=== PATIENT | male | born 1955 | race Caucasian/White ===

== ENCOUNTER 2019-04-14 14:08 | Emergency (ER) | payer SELFPAY ==
[~2019-04-14] VITALS: Ht 188 cm; Wt 75.8 kg
[~2019-04-14 14:08] MED LIST: CETI5 PO; CLOB.05TO; CLON2 PO; HYDPAM50 PO; OMEPRAZOLE MAGN20 MG PO
[2019-04-14 14:40] LABS: BASOPHILS ABSOLUTE AUTO 0.02 K/mm3 (0.00-0.23); BASOPHILS PERCENT AUTO 0 % (0-2); EOSINOPHILS ABSOLUTE AUTO 0.08 K/mm3 (0.00-0.68); EOSINOPHILS PERCENT AUTO 1 % (0-6); Hematocrit 43.4 % (37.0-53.0); Hemoglobin 14.6 g/dL (13.5-17.5); IMMATURE GRAN ABSOLUTE AUTO 0.02 K/mm3 (0.00-0.10); IMMATURE GRAN PERCENT AUTO 0 % (0-1); LYMPHOCYTES PERCENT AUTO 15 % (21-46); MONOCYTES ABSOLUTE AUTO 0.44 K/mm3 (0.16-1.47); MONOCYTES PERCENT AUTO 5 % (4-13); Mean Corpuscular HGB 31.9 pg (26.0-34.0); Mean Corpuscular HGB Conc 33.6 g/dL (31.5-36.5); Mean Corpuscular Volume 95 fL (80-100); Mean Platelet Volume 9.7 fL (9.1-12.4); NEUTROPHILS ABSOLUTE AUTO 7.69 K/mm3 (1.96-9.15); NEUTROPHILS PERCENT AUTO 80 % (41-73); Platelet Count 246 K/mm3 (150-400); RDW Coefficient Variation 12.6 % (11.7-14.2); RDW Standard Deviation 44.1 fL (35.1-46.3); Red Blood Cell Count 4.58 M/mm3 (4.30-5.90); White Blood Cell Count 9.65 K/mm3 (4.00-11.30)
[2019-04-14 15:05] LABS: Alanine Aminotransfer (ALT/SGP 43 U/L (12-78); Albumin, Blood 3.9 g/dL (3.4-5.0); Albumin/Globulin Ratio 1.1 (0.8-1.8); Alk Phos 80 U/L (50-136); Anion Gap 7 mmol/L (6-16); Aspartate Aminotrans (AST/SGOT 52 U/L (12-37); Bilirubin, Total 0.6 mg/dL (0.1-1.0); Blood Urea Nitrogen 34 mg/dL (8-24); Bun/Creatinine Ratio 35.2 (12.0-20.0); CO2, Blood 26 mmol/L (21-32); Calcium, Blood 8.7 mg/dL (8.5-10.1); Chloride, Blood 106 mmol/L (98-108); Creatinine, Blood 0.97 mg/dL (0.60-1.20); Globulin, Blood 3.4 g/dL (2.2-4.0); Glomerular Filtration Rate >60 (60-); Glucose, Blood 111 mg/dL (70-99); Potassium, Blood 3.9 mmol/L (3.5-5.5); Sodium, Blood 139 mmol/L (136-145); Total Protein, Blood 7.3 g/dL (6.4-8.2); Troponin I <0.015 ng/mL (0.000-0.040)
== END 2019-04-14 15:55 | disposition home or self-care (01) ==
LOC: ER 14:08
PROVIDERS: Emergency Medicine
DX: I20.8 Other forms of angina pectoris (principal); F17.210 Nicotine dependence, cigarettes, uncomplicated; Z91.041 Radiographic dye allergy status; Z88.1 Allergy status to other antibiotic agents; Z88.8 Allergy status to other drugs, medicaments and biological substances; Z79.899 Other long term (current) drug therapy
CPT/HCPCS: 71046; 80053; 84484; 85025; 93005; 93010; 99285-25

== ENCOUNTER 2019-04-25 10:58 | Emergency (ER) | payer MEDICAID ==
[~2019-04-25] VITALS: Ht 190.5 cm; Wt 77.1 kg
[2019-04-25 11:34] LABS: BASOPHILS ABSOLUTE AUTO 0.02 K/mm3 (0.00-0.23); BASOPHILS PERCENT AUTO 0 % (0-2); EOSINOPHILS ABSOLUTE AUTO 0.26 K/mm3 (0.00-0.68); EOSINOPHILS PERCENT AUTO 4 % (0-6); Hematocrit 45.2 % (37.0-53.0); Hemoglobin 14.9 g/dL (13.5-17.5); IMMATURE GRAN ABSOLUTE AUTO 0.02 K/mm3 (0.00-0.10); IMMATURE GRAN PERCENT AUTO 0 % (0-1); LYMPHOCYTES ABSOLUTE AUTO 1.55 K/mm3 (0.84-5.20); LYMPHOCYTES PERCENT AUTO 24 % (21-46); MONOCYTES ABSOLUTE AUTO 0.38 K/mm3 (0.16-1.47); MONOCYTES PERCENT AUTO 6 % (4-13); Mean Corpuscular HGB 31.3 pg (26.0-34.0); Mean Corpuscular Volume 95 fL (80-100); Mean Platelet Volume 9.7 fL (9.1-12.4); NEUTROPHILS ABSOLUTE AUTO 4.27 K/mm3 (1.96-9.15); NEUTROPHILS PERCENT AUTO 66 % (41-73); Platelet Count 259 K/mm3 (150-400); RDW Coefficient Variation 12.4 % (11.7-14.2); RDW Standard Deviation 43.8 fL (35.1-46.3); Red Blood Cell Count 4.76 M/mm3 (4.30-5.90)
[2019-04-25 11:53] LABS: Alanine Aminotransfer (ALT/SGP 36 U/L (12-78); Albumin, Blood 3.8 g/dL (3.4-5.0); Alk Phos 73 U/L (50-136); Anion Gap 5 mmol/L (6-16); Aspartate Aminotrans (AST/SGOT 22 U/L (12-37); Bilirubin, Total 0.3 mg/dL (0.1-1.0); Blood Urea Nitrogen 27 mg/dL (8-24); Bun/Creatinine Ratio 29.2 (12.0-20.0); CO2, Blood 29 mmol/L (21-32); Calcium, Blood 8.9 mg/dL (8.5-10.1); Chloride, Blood 107 mmol/L (98-108); Creatinine, Blood 0.93 mg/dL (0.60-1.20); Globulin, Blood 3.8 g/dL (2.2-4.0); Glomerular Filtration Rate >60 (60-); Glucose, Blood 102 mg/dL (70-99); Sodium, Blood 141 mmol/L (136-145); Total Protein, Blood 7.6 g/dL (6.4-8.2); Troponin I <0.015 ng/mL (0.000-0.040)
== END 2019-04-25 13:07 | disposition home or self-care (01) ==
LOC: ER 10:58
PROVIDERS: Emergency Medicine
DX: R07.89 Other chest pain (principal); R51 Headache; M54.2 Cervicalgia; Z91.041 Radiographic dye allergy status; Z88.8 Allergy status to other drugs, medicaments and biological substances; Z88.1 Allergy status to other antibiotic agents; Z79.899 Other long term (current) drug therapy; J44.9 Chronic obstructive pulmonary disease, unspecified; F17.200 Nicotine dependence, unspecified, uncomplicated
CPT/HCPCS: 71046; 80053; 84484; 85025; 93005; 93010; 99284-25

== ENCOUNTER → 2019-12-14 | Outpatient (CLI) | payer OTHER | LOC: PLD 07:31 → LAB SHORT 07:31 | DX: L30.9 Dermatitis, unspecified (principal) | CPT/HCPCS: 88312 ==

== ENCOUNTER 2021-01-02 20:01 | Observation (INO) | payer OTHER ==
[~2021-01-02] VITALS: Ht 188 cm; Wt 78.0 kg
[2021-01-02] MEDS ORDERED: NITR.4SL SL (20:19)
[2021-01-02] MEDS ORDERED: ALBU90OI INH (20:19)
[2021-01-02 20:25] LABS: BASOPHILS ABSOLUTE AUTO 0.03 K/mm3 (0.00-0.23); BASOPHILS PERCENT AUTO 0 % (0-2); EOSINOPHILS ABSOLUTE AUTO 0.09 K/mm3 (0.00-0.68); EOSINOPHILS PERCENT AUTO 1 % (0-6); Hematocrit 44.3 % (37.0-53.0); Hemoglobin 15.2 g/dL (13.5-17.5); IMMATURE GRAN ABSOLUTE AUTO 0.04 K/mm3 (0.00-0.10); IMMATURE GRAN PERCENT AUTO 1 % (0-1); LYMPHOCYTES ABSOLUTE AUTO 1.72 K/mm3 (0.84-5.20); LYMPHOCYTES PERCENT AUTO 20 % (21-46); MONOCYTES ABSOLUTE AUTO 0.54 K/mm3 (0.16-1.47); MONOCYTES PERCENT AUTO 6 % (4-13); Mean Corpuscular HGB 30.7 pg (26.0-34.0); Mean Corpuscular HGB Conc 34.3 g/dL (31.5-36.5); Mean Corpuscular Volume 90 fL (80-100); Mean Platelet Volume 9.6 fL (9.1-12.4); NEUTROPHILS ABSOLUTE AUTO 6.23 K/mm3 (1.96-9.15); NEUTROPHILS PERCENT AUTO 72 % (41-73); Platelet Count 237 K/mm3 (150-400); RDW Coefficient Variation 12.4 % (11.7-14.2); RDW Standard Deviation 40.9 fL (35.1-46.3); Red Blood Cell Count 4.95 M/mm3 (4.30-5.90); White Blood Cell Count 8.65 K/mm3 (4.00-11.30)
[2021-01-02 20:39] LABS: Alanine Aminotransfer (ALT/SGP 29 U/L (12-78); Albumin, Blood 3.8 g/dL (3.4-5.0); Albumin/Globulin Ratio 1.1 (0.8-1.8); Alk Phos 77 U/L (50-136); Anion Gap 7 mmol/L (6-16); Aspartate Aminotrans (AST/SGOT 21 U/L (12-37); Bilirubin, Total 0.6 mg/dL (0.1-1.0); Blood Urea Nitrogen 26 mg/dL (8-24); Bun/Creatinine Ratio 31.4 (12.0-20.0); CO2, Blood 27 mmol/L (21-32); Calcium, Blood 8.9 mg/dL (8.5-10.1); Chloride, Blood 106 mmol/L (98-108); Creatinine, Blood 0.83 mg/dL (0.60-1.20); Globulin, Blood 3.5 g/dL (2.2-4.0); Glomerular Filtration Rate >60 (60-); Glucose, Blood 135 mg/dL (70-99); Potassium, Blood 3.8 mmol/L (3.5-5.5); Sodium, Blood 140 mmol/L (136-145); Total Protein, Blood 7.3 g/dL (6.4-8.2); Troponin I <0.015 ng/mL (0.000-0.040)
[2021-01-02 21:08] LABS: Magnesium, Blood 2.2 mg/dL (1.6-2.4)
[2021-01-03 04:51] LABS: BASOPHILS ABSOLUTE AUTO 0.04 K/mm3 (0.00-0.23); BASOPHILS PERCENT AUTO 1 % (0-2); EOSINOPHILS ABSOLUTE AUTO 0.19 K/mm3 (0.00-0.68); EOSINOPHILS PERCENT AUTO 2 % (0-6); Hematocrit 40.8 % (37.0-53.0); Hemoglobin 14.2 g/dL (13.5-17.5); IMMATURE GRAN ABSOLUTE AUTO 0.03 K/mm3 (0.00-0.10); IMMATURE GRAN PERCENT AUTO 0 % (0-1); LYMPHOCYTES ABSOLUTE AUTO 2.19 K/mm3 (0.84-5.20); LYMPHOCYTES PERCENT AUTO 28 % (21-46); MONOCYTES ABSOLUTE AUTO 0.55 K/mm3 (0.16-1.47); MONOCYTES PERCENT AUTO 7 % (4-13); Mean Corpuscular HGB 31.1 pg (26.0-34.0); Mean Corpuscular HGB Conc 34.8 g/dL (31.5-36.5); Mean Corpuscular Volume 90 fL (80-100); Mean Platelet Volume 9.9 fL (9.1-12.4); NEUTROPHILS ABSOLUTE AUTO 4.78 K/mm3 (1.96-9.15); NEUTROPHILS PERCENT AUTO 62 % (41-73); Platelet Count 219 K/mm3 (150-400); RDW Coefficient Variation 12.5 % (11.7-14.2); RDW Standard Deviation 41.3 fL (35.1-46.3); Red Blood Cell Count 4.56 M/mm3 (4.30-5.90); White Blood Cell Count 7.78 K/mm3 (4.00-11.30)
--- NOTE | 2021-01-03 05:02 | NUR ---
SHIFT SUMMARY- PT. NEW ADMIT FROM ED. A&OX4, INDEP IN ROOM. NO COMPLAINTS OF CP DURING THE NIGHT. PT. RESTED QUIETLY IN BED T/O THE NIGHT, NO APPARENT DISTRESS NOTED. TROPS NEG THUS FAR. PT. STATED HAD SOME INDIGESTION, REQUESTED MILK. TOLERATED WELL. DENIED ANY OTHER NEEDS DURING THE NIGHT, VSS. CALL LIGHT WITHIN REACH AND SIDE RAILS UPX2. WILL CONT TO MONITOR.
[2021-01-03 05:15] LABS: CPK Creatine Kinase 244 U/L (39-308); Troponin I <0.015 ng/mL (0.000-0.040)
[2021-01-03 05:31] LABS: Alanine Aminotransfer (ALT/SGP 29 U/L (12-78); Albumin, Blood 3.3 g/dL (3.4-5.0); Alk Phos 68 U/L (50-136); Anion Gap 6 mmol/L (6-16); Aspartate Aminotrans (AST/SGOT 18 U/L (12-37); Bilirubin, Total 0.7 mg/dL (0.1-1.0); Blood Urea Nitrogen 28 mg/dL (8-24); Bun/Creatinine Ratio 30.1 (12.0-20.0); CO2, Blood 26 mmol/L (21-32); Calcium, Blood 8.5 mg/dL (8.5-10.1); Chloride, Blood 107 mmol/L (98-108); Creatinine, Blood 0.93 mg/dL (0.60-1.20); Globulin, Blood 3.3 g/dL (2.2-4.0); Glomerular Filtration Rate >60 (60-); Glucose, Blood 84 mg/dL (70-99); Potassium, Blood 3.8 mmol/L (3.5-5.5); Sodium, Blood 139 mmol/L (136-145); Total Protein, Blood 6.6 g/dL (6.4-8.2)
[2021-01-03 13:20] LABS: Cholesterol 165 mg/dL (50-200); HDL Cholesterol 41 mg/dL (>39); LDL/HDL RATIO 2.5; Low Density Lipoprotein Chol 101 mg/dL (0-110); Triglycerides 117 mg/dL (30-160); Very Low Density Lipoprot Chol 23 mg/dL (6-32)
--- NOTE | 2021-01-03 15:50 | NUR ---
Echocardiogram completed.
--- NOTE | 2021-01-03 18:06 | NUR ---
SHIFT SUMMARY PT HAD STRESS TEST COMPLETED TODAY. ECHO ALSO COMPLETED IN ROOM. PT HAS NOT C/O CHEST PAIN TODAY SINCE TAKING A GI COCKTAIL THIS AM. NO OTHER ACUTE CHANGES IN ASSESSMENT AT THIS TIME. VS REVIEWED. CALL LIGHT IN REACH. PT UP IN CHAIR. EATING DINNER.
--- NOTE | 2021-01-04 05:17 | NUR ---
SHIFT SUMMARY A/OX4, IND IN ROOM. DENIES CHEST PAIN/PRESSURE AT THIS TIME. TELE RUNNING SR IN THE 60'S. VSS, NO ACUTE CHANGES AT THIS TIME. BED IN LOWEST POSITION WITH CALL LIGHT IN REACH. WILL CONTINUE TO MONITOR AND REPORT TO ONCOMING RN.
[2021-01-04] MEDS ORDERED: MIRT30 PO (12:43)
[2021-01-04] MEDS ORDERED: Nicoderm Cq1 EAC1 TOP (12:44)
== END 2021-01-04 14:11 | disposition home or self-care (01) ==
LOC: ER 20:01 → MEDS 22:10
PROVIDERS: Internal Medicine; Student in an Organized Health Care Education/Training Program; ADMIT Internal Medicine
DX: R07.2 Precordial pain (principal); I25.10 Atherosclerotic heart disease of native coronary artery without angina pectoris; J44.9 Chronic obstructive pulmonary disease, unspecified; F17.210 Nicotine dependence, cigarettes, uncomplicated; I11.0 Hypertensive heart disease with heart failure; I50.9 Heart failure, unspecified; F41.9 Anxiety disorder, unspecified; I25.2 Old myocardial infarction
CPT/HCPCS: 36415; 71045; 78452; 80053; 80061; 82550; 83735; 84443; 84484; 85025; 93005; 93010; 93017; 93306; 94760; 99285-25; A9270; A9500; G0378; J0706; J1650; J2785; J7030

== ENCOUNTER 2023-01-25 12:50 | Emergency (ER) | payer OTHER ==
[~2023-01-25] VITALS: Ht 193 cm; Wt 81.7 kg
[~2023-01-25 12:50] MED LIST changes: +ALBU2.5V5 INH; +ALBU90OI INH; +EPIPEN0.3 MG/0.1 INJ; +HYDHCL25 PO; +LEVO750 PO; +MIRT30 PO; +NITR.4SL SL; +Nicoderm Cq1 EAC1 TOP; +Pepcid40 MG PO; +Prednisone20 MG PO
[2023-01-25 12:55] VITALS: BP 180/93
[2023-01-25] MEDS ORDERED: Voltaren100 GM TOP (13:37)
== END 2023-01-25 14:02 | disposition home or self-care (01) ==
LOC: ER 12:50
DX: S43.402A Unspecified sprain of left shoulder joint, initial encounter (principal); W18.30XA Fall on same level, unspecified, initial encounter; Z88.1 Allergy status to other antibiotic agents; Z88.6 Allergy status to analgesic agent; Z91.041 Radiographic dye allergy status; Z88.8 Allergy status to other drugs, medicaments and biological substances; Z79.51 Long term (current) use of inhaled steroids; Z79.899 Other long term (current) drug therapy; J44.9 Chronic obstructive pulmonary disease, unspecified; G43.909 Migraine, unspecified, not intractable, without status migrainosus; F17.200 Nicotine dependence, unspecified, uncomplicated
CPT/HCPCS: 99283

== ENCOUNTER 2023-02-10 07:14 | Emergency (ER) | payer OTHER ==
[~2023-02-10] VITALS: Ht 190.5 cm; Wt 81.7 kg
[~2023-02-10 07:14] MED LIST changes: +Voltaren100 GM TOP
[2023-02-10 07:45] LABS: BASOPHILS ABSOLUTE AUTO 0.04 K/mm3 (0.00-0.23); BASOPHILS PERCENT AUTO 0 % (0-2); EOSINOPHILS ABSOLUTE AUTO 0.22 K/mm3 (0.00-0.68); EOSINOPHILS PERCENT AUTO 2 % (0-6); Hematocrit 46.5 % (37.0-53.0); Hemoglobin 15.8 g/dL (13.5-17.5); IMMATURE GRAN ABSOLUTE AUTO 0.04 K/mm3 (0.00-0.10); IMMATURE GRAN PERCENT AUTO 0 % (0-1); LYMPHOCYTES ABSOLUTE AUTO 2.37 K/mm3 (0.84-5.20); LYMPHOCYTES PERCENT AUTO 26 % (21-46); MONOCYTES ABSOLUTE AUTO 0.47 K/mm3 (0.16-1.47); MONOCYTES PERCENT AUTO 5 % (4-13); Mean Corpuscular HGB 30.6 pg (26.0-34.0); Mean Corpuscular Volume 90 fL (80-100); Mean Platelet Volume 9.4 fL (9.1-12.4); NEUTROPHILS ABSOLUTE AUTO 5.86 K/mm3 (1.96-9.15); NEUTROPHILS PERCENT AUTO 65 % (41-73); Platelet Count 269 K/mm3 (150-400); RDW Coefficient Variation 12.5 % (11.7-14.2); RDW Standard Deviation 41.3 fL (35.1-46.3); Red Blood Cell Count 5.16 M/mm3 (4.30-5.90)
[2023-02-10 08:10] LABS: Free Thyroxine 0.85 ng/dL (0.70-1.60)
[2023-02-10 08:13] LABS: Albumin, Blood 3.8 g/dL (3.4-5.0); Bilirubin, Total 0.5 mg/dL (0.1-1.0); Bun/Creatinine Ratio 29.1 (12.0-20.0); Globulin, Blood 3.7 g/dL (2.2-4.0); Potassium, Blood 4.1 mmol/L (3.5-5.5); Thyroid Stimulating Hormone 2.2 uIU/mL (0.360-4.800); Total Protein, Blood 7.5 g/dL (6.4-8.2)
[2023-02-10 08:30] VITALS: BP 142/78
[2023-02-10] MEDS ORDERED: AMOCLA875 PO (09:09)
== END 2023-02-10 09:16 | disposition home or self-care (01) ==
LOC: ER 07:14
PROVIDERS: Emergency Medicine
DX: K11.20 Sialoadenitis, unspecified (principal); J44.9 Chronic obstructive pulmonary disease, unspecified; I25.10 Atherosclerotic heart disease of native coronary artery without angina pectoris; I25.2 Old myocardial infarction; F17.200 Nicotine dependence, unspecified, uncomplicated; Z88.1 Allergy status to other antibiotic agents; Z91.041 Radiographic dye allergy status; Z88.6 Allergy status to analgesic agent; Z88.8 Allergy status to other drugs, medicaments and biological substances; Z79.899 Other long term (current) drug therapy
CPT/HCPCS: 70491; 80053; 84439; 84443; 85025; 96374-59; 96375; 99284-25; J1100; J1200; Q9967

== ENCOUNTER 2023-03-24 08:15 | Emergency (ER) | payer OTHER ==
[~2023-03-24] VITALS: Ht 190.5 cm; Wt 81.7 kg
[~2023-03-24 08:15] MED LIST changes: +AMOCLA875 PO
[2023-03-24 08:43] VITALS: BP 142/78
[2023-03-24] MEDS ORDERED: Percocet 5-3251 EACH PO (09:48)
== END 2023-03-24 10:03 | disposition home or self-care (01) ==
LOC: ER 08:15
DX: S43.51XA Sprain of right acromioclavicular joint, initial encounter (principal); J44.9 Chronic obstructive pulmonary disease, unspecified; I25.10 Atherosclerotic heart disease of native coronary artery without angina pectoris; I25.2 Old myocardial infarction; F17.200 Nicotine dependence, unspecified, uncomplicated; Z91.041 Radiographic dye allergy status; Z88.6 Allergy status to analgesic agent; Z88.1 Allergy status to other antibiotic agents; Z88.8 Allergy status to other drugs, medicaments and biological substances; Z79.899 Other long term (current) drug therapy; X50.1XXA Overexertion from prolonged static or awkward postures, initial encounter
CPT/HCPCS: 73030; 99283-25

== ENCOUNTER 2023-07-28 23:18 | Emergency (ER) | payer OTHER ==
[~2023-07-28] VITALS: Ht 182.9 cm; Wt 72.6 kg
[~2023-07-28 23:18] MED LIST changes: +Percocet 5-3251 EACH PO
[2023-07-29] MEDS ORDERED: Benadryl Itch28.3 G1 TOP (03:08)
[2023-07-29 03:25] VITALS: BP 139/95
== END 2023-07-29 03:24 | disposition home or self-care (01) ==
LOC: ER 23:18
DX: L29.9 Pruritus, unspecified (principal); Z88.8 Allergy status to other drugs, medicaments and biological substances; Z88.6 Allergy status to analgesic agent; Z88.1 Allergy status to other antibiotic agents; Z91.041 Radiographic dye allergy status; Z79.899 Other long term (current) drug therapy; J44.9 Chronic obstructive pulmonary disease, unspecified; G43.909 Migraine, unspecified, not intractable, without status migrainosus; F43.10 Post-traumatic stress disorder, unspecified; I25.10 Atherosclerotic heart disease of native coronary artery without angina pectoris; F17.200 Nicotine dependence, unspecified, uncomplicated
CPT/HCPCS: A9270

== ENCOUNTER → 2024-03-16 | Outpatient (CLI) | payer OTHER ==
[~2024-03-16] MED LIST changes: +Benadryl Itch28.3 G1 TOP; +Robaxin750 MG PO
[2024-03-16 17:50] LABS: BASOPHILS ABSOLUTE AUTO 0.03 K/mm3 (0.00-0.23); BASOPHILS PERCENT AUTO 0 % (0-2); EOSINOPHILS PERCENT AUTO 4 % (0-6); Hemoglobin 16.1 g/dL (13.5-17.5); IMMATURE GRAN ABSOLUTE AUTO 0.04 K/mm3 (0.00-0.10); IMMATURE GRAN PERCENT AUTO 1 % (0-1); LYMPHOCYTES ABSOLUTE AUTO 2.12 K/mm3 (0.84-5.20); LYMPHOCYTES PERCENT AUTO 29 % (21-46); MONOCYTES ABSOLUTE AUTO 0.46 K/mm3 (0.16-1.47); MONOCYTES PERCENT AUTO 6 % (4-13); Mean Corpuscular HGB Conc 34.3 g/dL (31.5-36.5); Mean Corpuscular Volume 90 fL (80-100); Mean Platelet Volume 10.3 fL (9.1-12.4); NEUTROPHILS ABSOLUTE AUTO 4.46 K/mm3 (1.96-9.15); NEUTROPHILS PERCENT AUTO 60 % (41-73); Platelet Count 263 K/mm3 (150-400); RDW Coefficient Variation 12.3 % (11.7-14.2); RDW Standard Deviation 40.7 fL (35.1-46.3); White Blood Cell Count 7.41 K/mm3 (4.00-11.30)
[2024-03-16 18:07] LABS: Alanine Aminotransfer (ALT/SGP 28 U/L (12-78); Albumin, Blood 3.8 g/dL (3.4-5.0); Albumin/Globulin Ratio 1.1 (0.8-1.8); Alk Phos 81 U/L (50-136); Anion Gap 7 mmol/L (3-11); Aspartate Aminotrans (AST/SGOT 17 U/L (12-37); Bilirubin, Total 0.4 mg/dL (0.1-1.0); Blood Urea Nitrogen 34 mg/dL (8-24); Bun/Creatinine Ratio 35.3 (12.0-20.0); CHOL/HDL RATIO 4.3; CO2, Blood 29 mmol/L (21-32); Calcium, Blood 8.9 mg/dL (8.5-10.1); Chloride, Blood 107 mmol/L (98-108); Cholesterol 175 mg/dL (50-200); Creatinine, Blood 0.96 mg/dL (0.60-1.20); Globulin, Blood 3.6 g/dL (2.2-4.0); Glomerular Filtration Rate 86 (60-); Glucose, Blood 98 mg/dL (70-99); HDL Cholesterol 41 mg/dL (>39); LDL/HDL RATIO 2.4; Low Density Lipoprotein Chol 100 mg/dL (0-110); Potassium, Blood 4.1 mmol/L (3.5-5.5); Sodium, Blood 139 mmol/L (136-145); Total Protein, Blood 7.4 g/dL (6.4-8.2); Triglycerides 172 mg/dL (30-160); Very Low Density Lipoprot Chol 34 mg/dL (6-32)
== END ==
LOC: LAB 15:58 → LAB SHORT 15:58
PROVIDERS: Family Medicine
DX: Z51.81 Encounter for therapeutic drug level monitoring (principal); Z79.899 Other long term (current) drug therapy
CPT/HCPCS: 80053; 80061; 85025

== ENCOUNTER 2024-04-05 13:02 | Day surgery (SDC) | payer OTHER ==
[~2024-04-05] VITALS: Ht 188 cm; Wt 165.6 kg
[~2024-04-05 13:02] MED LIST changes: +Atropine Sulfate 0.1 MG/ML 10ML SYR ONE; +Glycopyrrolate 0.2 MG/ML 1MLVIAL ONE; +Lidocaine 2% 5 ML SDV ONE; +Lidocaine HCl/Pf 1% 5 ML VIAL ONE; +Methylene Blue 1% 100 MG/10 ML VIAL ONE; +Ondansetron HCl 2 MG / ML 2ML Vial ONE; +ePHEDrine Sulfate 50 MG/ML 1ML Injection ONE
[2024-04-05] MEDS ORDERED: PANT40 (13:41)
[2024-04-05] MEDS ORDERED: Crestor40 MG (13:42)
[2024-04-05] MEDS ORDERED: IMITREX100 MG (13:43)
[2024-04-05] MEDS ORDERED: Bisoprolol Fumar5 MG (13:44)
[2024-04-05] MEDS ORDERED: Lactated Ringer's 1,000 ML IV ONE ×2 (14:18→14:33)
[2024-04-05] MEDS ORDERED: propofoL 50 ML IV ONE (14:33)
--- NOTE | 2024-04-05 14:34 | NUR ---
04/05/24 1434 Indy Segura PT. HAS COPD. PT. WITH TANGELA EXP. WHEEZE POSTERIORLY THAT CLEARED WITH COUGH. PT. COUGHING AT TIMES. VERBALIZES HAS PHLEGM THAT COMES UP AT TIMES. PT. VERBALIZES HAS CHRONIC PAIN "FROM MY CHEST FROM MY LUNGS & MY LEFT SHOULDER THAT GOES INTO MY CHEST, RATING AN "8". VERBALIZES STOPPED SMOKING MARIJUANA 1 WEEK AGO.
[2024-04-05 16:20] VITALS: BP 123/80
== END 2024-04-05 16:10 | disposition home or self-care (01) ==
LOC: ORSCSDS 13:02
PROVIDERS: Internal Medicine Gastroenterology
PROC: 0DJ08ZZ Inspection of Upper Intestinal Tract, Via Natural or Artificial Opening Endoscopic (ICD-10-PCS; principal; 2024-04-05 14:00)
PROC: 0DBM8ZX Excision of Descending Colon, Via Natural or Artificial Opening Endoscopic, Diagnostic (ICD-10-PCS; principal; 2024-04-05 14:00)
PROC: 0DBL8ZX Excision of Transverse Colon, Via Natural or Artificial Opening Endoscopic, Diagnostic (ICD-10-PCS; principal; 2024-04-05 14:00)
DX: R19.4 Change in bowel habit (principal); R13.10 Dysphagia, unspecified; R10.84 Generalized abdominal pain; K21.9 Gastro-esophageal reflux disease without esophagitis; D12.3 Benign neoplasm of transverse colon; D12.4 Benign neoplasm of descending colon; R93.3 Abnormal findings on diagnostic imaging of other parts of digestive tract; Z86.010 Personal history of colon polyps; K57.30 Diverticulosis of large intestine without perforation or abscess without bleeding; K44.9 Diaphragmatic hernia without obstruction or gangrene; I25.2 Old myocardial infarction; J44.9 Chronic obstructive pulmonary disease, unspecified; Z80.0 Family history of malignant neoplasm of digestive organs; F17.210 Nicotine dependence, cigarettes, uncomplicated; Z79.899 Other long term (current) drug therapy
CPT/HCPCS: 82947; 88305; J0461; J2001; J2405; J2704; J7120; Q9968

== ENCOUNTER 2024-04-07 10:14 | Emergency (ER) | payer OTHER ==
[~2024-04-07] VITALS: Ht 182.9 cm; Wt 68.0 kg
[~2024-04-07 10:14] MED LIST changes: -Atropine Sulfate 0.1 MG/ML 10ML SYR ONE; +Bisoprolol Fumar5 MG; +Crestor40 MG; -Glycopyrrolate 0.2 MG/ML 1MLVIAL ONE; +IMITREX100 MG; -Lidocaine 2% 5 ML SDV ONE; -Lidocaine HCl/Pf 1% 5 ML VIAL ONE; -Methylene Blue 1% 100 MG/10 ML VIAL ONE; -Ondansetron HCl 2 MG / ML 2ML Vial ONE; +PANT40; -ePHEDrine Sulfate 50 MG/ML 1ML Injection ONE
[2024-04-07 10:43] LABS: BASOPHILS ABSOLUTE AUTO 0.03 K/mm3 (0.00-0.23); BASOPHILS PERCENT AUTO 0 % (0-2); EOSINOPHILS ABSOLUTE AUTO 0.17 K/mm3 (0.00-0.68); EOSINOPHILS PERCENT AUTO 2 % (0-6); Hematocrit 42.4 % (37.0-53.0); Hemoglobin 14.6 g/dL (13.5-17.5); IMMATURE GRAN ABSOLUTE AUTO 0.02 K/mm3 (0.00-0.10); IMMATURE GRAN PERCENT AUTO 0 % (0-1); LYMPHOCYTES ABSOLUTE AUTO 1.54 K/mm3 (0.84-5.20); LYMPHOCYTES PERCENT AUTO 19 % (21-46); MONOCYTES ABSOLUTE AUTO 0.49 K/mm3 (0.16-1.47); MONOCYTES PERCENT AUTO 6 % (4-13); Mean Corpuscular HGB 30.7 pg (26.0-34.0); Mean Corpuscular HGB Conc 34.4 g/dL (31.5-36.5); Mean Corpuscular Volume 89 fL (80-100); Mean Platelet Volume 9.4 fL (9.1-12.4); NEUTROPHILS PERCENT AUTO 72 % (41-73); Platelet Count 241 K/mm3 (150-400); RDW Coefficient Variation 12.4 % (11.7-14.2); RDW Standard Deviation 40.7 fL (35.1-46.3); Red Blood Cell Count 4.76 M/mm3 (4.30-5.90); White Blood Cell Count 7.95 K/mm3 (4.00-11.30)
[2024-04-07 11:17] LABS: Albumin, Blood 3.5 g/dL (3.4-5.0); Albumin/Globulin Ratio 1.1 (0.8-1.8); Bilirubin, Total 0.4 mg/dL (0.1-1.0); Bun/Creatinine Ratio 31.4 (12.0-20.0); Calcium, Blood 8.9 mg/dL (8.5-10.1); Creatinine, Blood 0.86 mg/dL (0.60-1.20); Globulin, Blood 3.3 g/dL (2.2-4.0); Potassium, Blood 4.1 mmol/L (3.5-5.5); Total Protein, Blood 6.8 g/dL (6.4-8.2)
[2024-04-07 13:15] VITALS: BP 143/76
== END 2024-04-07 13:22 | disposition home or self-care (01) ==
LOC: ER 10:14
PROVIDERS: Physician Assistant
DX: I10 Essential (primary) hypertension (principal); J44.9 Chronic obstructive pulmonary disease, unspecified; G43.909 Migraine, unspecified, not intractable, without status migrainosus; F43.10 Post-traumatic stress disorder, unspecified; I25.2 Old myocardial infarction; F17.210 Nicotine dependence, cigarettes, uncomplicated; Z79.899 Other long term (current) drug therapy; Z88.6 Allergy status to analgesic agent; Z88.1 Allergy status to other antibiotic agents; Z91.041 Radiographic dye allergy status; Z88.8 Allergy status to other drugs, medicaments and biological substances
CPT/HCPCS: 71046; 80053; 83880; 84484; 85025; 93005; 93010; 99285-25

== ENCOUNTER → 2024-08-07 | Outpatient (CLI) | payer OTHER ==
[2024-08-07 14:31] LABS: Alanine Aminotransfer (ALT/SGP 30 U/L (12-78); Albumin/Globulin Ratio 1.1 (0.8-1.8); Alk Phos 83 U/L (50-136); Anion Gap 9 mmol/L (3-11); Aspartate Aminotrans (AST/SGOT 18 U/L (12-37); Bilirubin, Total 0.6 mg/dL (0.1-1.0); Blood Urea Nitrogen 32 mg/dL (8-24); Bun/Creatinine Ratio 34.5 (12.0-20.0); CHOL/HDL RATIO 4.5; CO2, Blood 27 mmol/L (21-32); Chloride, Blood 109 mmol/L (98-108); Cholesterol 191 mg/dL (50-200); Creatinine, Blood 0.93 mg/dL (0.60-1.20); Globulin, Blood 3.8 g/dL (2.2-4.0); Glomerular Filtration Rate 89 (60-); Glucose, Blood 116 mg/dL (70-99); HDL Cholesterol 42 mg/dL (>39); LDL/HDL RATIO 3.2; Low Density Lipoprotein Chol 132 mg/dL (0-110); Potassium, Blood 4.2 mmol/L (3.5-5.5); Sodium, Blood 141 mmol/L (136-145); Total Protein, Blood 7.8 g/dL (6.4-8.2); Triglycerides 83 mg/dL (30-160); Very Low Density Lipoprot Chol 16 mg/dL (6-32)
[2024-08-07 14:33] LABS: Prostate Specific Antigen 0.937 ng/mL (0.000-4.000)
[2024-08-07 14:35] LABS: BASOPHILS ABSOLUTE AUTO 0.04 K/mm3 (0.00-0.23); BASOPHILS PERCENT AUTO 0 % (0-2); EOSINOPHILS PERCENT AUTO 2 % (0-6); Hematocrit 48.2 % (37.0-53.0); Hemoglobin 16.2 g/dL (13.5-17.5); IMMATURE GRAN ABSOLUTE AUTO 0.03 K/mm3 (0.00-0.10); IMMATURE GRAN PERCENT AUTO 0 % (0-1); LYMPHOCYTES ABSOLUTE AUTO 2.36 K/mm3 (0.84-5.20); LYMPHOCYTES PERCENT AUTO 26 % (21-46); MONOCYTES ABSOLUTE AUTO 0.42 K/mm3 (0.16-1.47); MONOCYTES PERCENT AUTO 5 % (4-13); Mean Corpuscular HGB 30.9 pg (26.0-34.0); Mean Corpuscular HGB Conc 33.6 g/dL (31.5-36.5); Mean Corpuscular Volume 92 fL (80-100); NEUTROPHILS ABSOLUTE AUTO 5.96 K/mm3 (1.96-9.15); NEUTROPHILS PERCENT AUTO 66 % (41-73); Platelet Count 276 K/mm3 (150-400); RDW Coefficient Variation 12.6 % (11.7-14.2); RDW Standard Deviation 42.6 fL (35.1-46.3); Red Blood Cell Count 5.24 M/mm3 (4.30-5.90); White Blood Cell Count 9.01 K/mm3 (4.00-11.30)
== END | disposition home or self-care (01) ==
LOC: LAB SHORT 08:40 → LAB 08:40
PROVIDERS: Nurse Practitioner Family
DX: Z12.5 Encounter for screening for malignant neoplasm of prostate (principal); E78.2 Mixed hyperlipidemia; R03.0 Elevated blood-pressure reading, without diagnosis of hypertension
CPT/HCPCS: 80053; 80061; 83036; 85025; G0103

== ENCOUNTER 2024-09-10 07:50 | Emergency (ER) | payer OTHER | END 2024-09-10 10:17 | disposition left against medical advice (07) | LOC: ER 07:50 | DX: Z53.21 Procedure and treatment not carried out due to patient leaving prior to being seen by health care provider (principal) | CPT/HCPCS: 93005; 93010 ==

== ENCOUNTER 2024-09-18 19:06 | Inpatient (IN) | payer OTHER ==
[~2024-09-18] VITALS: Ht 188 cm; Wt 77.7 kg
[~2024-09-18 19:06] MED LIST changes: -Crestor40 MG; +Crestor40 MG PO; -IMITREX100 MG; +IMITREX100 MG PO; +Metoprolol Succinate 25 MG TABCR PO SCH; -PANT40; +PANT40 PO
[2024-09-18] MEDS ORDERED: Mag Hydrox/AL Hydrox/Simeth 30 ML UDC PO ONE (19:35)
[2024-09-18 19:40] LABS: BASOPHILS ABSOLUTE AUTO 0.02 K/mm3 (0.00-0.23); BASOPHILS PERCENT AUTO 0 % (0-2); EOSINOPHILS PERCENT AUTO 0 % (0-6); IMMATURE GRAN ABSOLUTE AUTO 0.13 K/mm3 (0.00-0.10); IMMATURE GRAN PERCENT AUTO 1 % (0-1); LYMPHOCYTES ABSOLUTE AUTO 0.57 K/mm3 (0.84-5.20); LYMPHOCYTES PERCENT AUTO 4 % (21-46); MONOCYTES ABSOLUTE AUTO 0.43 K/mm3 (0.16-1.47); MONOCYTES PERCENT AUTO 3 % (4-13); Mean Corpuscular HGB 31.5 pg (26.0-34.0); Mean Corpuscular HGB Conc 35.9 g/dL (31.5-36.5); Mean Corpuscular Volume 88 fL (80-100); Mean Platelet Volume 9.4 fL (9.1-12.4); NEUTROPHILS PERCENT AUTO 92 % (41-73); Platelet Count 169 K/mm3 (150-400); RDW Coefficient Variation 14.1 % (11.7-14.2); RDW Standard Deviation 44.8 fL (35.1-46.3); Red Blood Cell Count 4.44 M/mm3 (4.30-5.90); White Blood Cell Count 14.65 K/mm3 (4.00-11.30)
[2024-09-18 20:09] LABS: Magnesium, Blood 2.5 mg/dL (1.6-2.4)
[2024-09-18 20:12] LABS: Albumin, Blood 2.7 g/dL (3.4-5.0); Albumin/Globulin Ratio 0.9 (0.8-1.8); Bilirubin, Total 0.4 mg/dL (0.1-1.0); Bun/Creatinine Ratio 34.8 (12.0-20.0); Calcium, Blood 7.8 mg/dL (8.5-10.1); Creatinine, Blood 0.92 mg/dL (0.60-1.20); Globulin, Blood 2.9 g/dL (2.2-4.0); Potassium, Blood 2.6 mmol/L (3.5-5.5); Total Protein, Blood 5.6 g/dL (6.4-8.2)
[2024-09-18 20:26] LABS: CORONAVIRUS COVID-19 AG Negative (NEGATIVE); INFLUENZA A AG Negative (NEGATIVE); INFLUENZA B AG Negative (NEGATIVE)
[2024-09-18] MEDS ORDERED: Potassium Chloride 40 MEQ in NS 250 ML IV ONE (21:55)
[2024-09-18] MEDS ORDERED: FLU VACC TS2024-25(6MOS UP)/PF 45 MCG/0.5 ML SYRINGE IM ONE (23:05)
[2024-09-18] MEDS ORDERED: Ondansetron 4 MG TAB PO PRN (23:05)
[2024-09-18] MEDS ORDERED: HydrALAZINE HCl 20 MG / ML 1ML Vial IV PRN (23:35)
[2024-09-19] VITALS (7 sets, daily range): BP systolic 142–181; BP diastolic 79–98
[2024-09-19] MEDS ORDERED: Atorvastatin 40 MG Tab PO SCH (00:48)
[2024-09-19] MEDS ORDERED: Furosemide 10 MG/ML 4ML Vial IV SCH (00:49)
[2024-09-19] MEDS ORDERED: HyDROXyzine HCl 25 MG Tab PO SCH (00:50)
[2024-09-19] MEDS ORDERED: Pantoprazole Sodium 40 MG Tab PO SCH (00:52)
[2024-09-19] MEDS ORDERED: Albuterol 2.5 MG/3 ML VIAL INH PRN (03:40)
[2024-09-19] MEDS ORDERED: Albuterol HFA200 ACT/6.7 GM INH INH SCH (03:40)
[2024-09-19 05:04] LABS: BASOPHILS ABSOLUTE AUTO 0.02 K/mm3 (0.00-0.23); BASOPHILS PERCENT AUTO 0 % (0-2); EOSINOPHILS PERCENT AUTO 0 % (0-6); Hematocrit 38.7 % (37.0-53.0); Hemoglobin 13.7 g/dL (13.5-17.5); IMMATURE GRAN ABSOLUTE AUTO 0.12 K/mm3 (0.00-0.10); IMMATURE GRAN PERCENT AUTO 1 % (0-1); LYMPHOCYTES ABSOLUTE AUTO 0.53 K/mm3 (0.84-5.20); LYMPHOCYTES PERCENT AUTO 4 % (21-46); MONOCYTES ABSOLUTE AUTO 0.39 K/mm3 (0.16-1.47); MONOCYTES PERCENT AUTO 3 % (4-13); Mean Corpuscular HGB 31.4 pg (26.0-34.0); Mean Corpuscular HGB Conc 35.4 g/dL (31.5-36.5); Mean Corpuscular Volume 89 fL (80-100); Mean Platelet Volume 9.4 fL (9.1-12.4); NEUTROPHILS ABSOLUTE AUTO 11.48 K/mm3 (1.96-9.15); NEUTROPHILS PERCENT AUTO 92 % (41-73); Platelet Count 161 K/mm3 (150-400); RDW Coefficient Variation 13.9 % (11.7-14.2); RDW Standard Deviation 44.7 fL (35.1-46.3); Red Blood Cell Count 4.37 M/mm3 (4.30-5.90); White Blood Cell Count 12.54 K/mm3 (4.00-11.30)
[2024-09-19 06:12] LABS: Albumin, Blood 2.7 g/dL (3.4-5.0); Bilirubin, Total 0.7 mg/dL (0.1-1.0); Calcium, Blood 7.7 mg/dL (8.5-10.1); Creatinine, Blood 0.81 mg/dL (0.60-1.20); Globulin, Blood 2.8 g/dL (2.2-4.0); Potassium, Blood 2.4 mmol/L (3.5-5.5); Total Protein, Blood 5.5 g/dL (6.4-8.2)
[2024-09-19] MEDS ORDERED: Potassium Chloride 40 MEQ in NS 250 ML IV ONE (06:35)
--- NOTE | 2024-09-19 06:49 | NUR ---
SHIFT SUMMARY: PT ARRIVES TO PCU 14 FROM THE ER VIA GURNEY AROUND 0020. PT IS A SBA TRANSFER TO HOSPITAL BED. PT ORIENTED TO ROOM AND CALL LIGHT SYSTEM. HE IS A&OX4, PLEASANT AND COOPERATIVE WITH CARE. VSS ON RA. SR IN THE 70 S. DENIES ANY CP OR PRESSURE CURRENTLY. PT DOES HAVE CHRONIC PAIN, BUT DENIES THE NEED FOR MEDICATION. TOLERATING A HEART HEALTHY DIET, WITH A 1.5L FLUID RESTRICTION. VOIDING LARGE AMOUNTS OF CLEAR, LIGHT YELLOW URINE IN URINAL. X2 MEDIUM, SOFT BM'S THIS SHIFT. CRITICAL POTASSIUM OF 2.4, CALLED DR DAVILA AT 0615. SEE NEW ORDERS. BED IN LOWEST POSITION, CALL LIGHT WITHIN REACH. CALLS APPROPRIATELY AND IS ABLE TO ADVOCATE NEEDS EFFECTIVELY.
[2024-09-19] MEDS ORDERED: Tiotropium Bromide 2.5 MCG/ACT MIST INHAL (10 ACT/4 GM) INH SCH (07:40)
--- NOTE | 2024-09-19 07:57 | NUR ---
ASSUMPTION NOTE: THIS RN TO ASSUME CARE OF PATIENT. PATIENT IS RESTING IN BED, EAISLY AROUSABLE. PATIENT DENIED ANY CHEST PAIN/PRESSURE OR FEELING SHORT OF BREATH. VITAL SIGNS STABLE, PATIENT AWARE THAT TODAY WE WILL GET CLARIFICATION FOR INSULIN OR NOT DEPENDING ON BLOOD SUGAR CHECKS PER MD. PATIENT DENYING AT NEEDS AT THIS TIME, HAS CALL LIGHT WITHIN REACH AND BED IN LOWEST POSITION.
[2024-09-19] MEDS ORDERED: Potassium Chloride 20 MEQ TabCR PO SCH (08:22)
[2024-09-19] MEDS ORDERED: Enoxaparin 40 MG/0.4 ML SYR SC SCH (09:00)
--- NOTE | 2024-09-19 09:40 | NUR ---
md at bedside: md kelly to bedside as the echo was being completed. md to orders stress test 2 parts & insulin low sliding scale for ACHS blood sugar coverage. patient aware and md to order A1C as well. this rn expresed paitents concern about thrush, md to order medications. patient aware the stres test will take two days, oral potassium was given per emar.
[2024-09-19] MEDS ORDERED: Insulin Human Lispro 100 Units/ML 3ML Syringe SC SCH (11:30)
[2024-09-19] MEDS ORDERED: Calcium Carbonate 500 MG Tab Chew PO SCH (12:00)
[2024-09-19] MEDS ORDERED: Nystatin 100,000 Unit/ML Susp 5 ML UDC MT SCH (13:00)
[2024-09-19] MEDS ORDERED: Regadenoson 0.4 MG/5 ML SYRINGE ONE (13:32)
[2024-09-19] MEDS ORDERED: Aminophylline 250MG / 10ML 10 ML Vial ONE (13:32)
--- NOTE | 2024-09-19 16:46 | NUR ---
SHIFT SUMMARY: PATIENT IS ALERT AND ORIENTED X4 AND ACTIVE IN HIS CARE. IS ABLE TO MAKE NEEDS KNOWN AND USE CALL LIGHT APPROIATELY. PARKER IS ON TELE SHOWING SINUS RYTHM WITHR ATE 80-90'S. PATIENT HAD AN ECHO & THE 1ST PORTION OF A STRESS TEST DONE, RESULTS ARE IN THE CHART. PARKER WILL BECOME NPO AT MIDNIGHT FOR THE 2ND HALF OF THE STRESS TEST TO BE DONE 3.12.25 AROUND 09:00. PATIENT IS [facility]S BLOOD SUGAR CHECKS & NEEDED COVERAGE THROUGHOUT THE SHIFT. PATIENT IS A STAND BY ASSIST TO MANGE LINES/CHORDS. IS ON A FLUID RESTIRCTION AND DID GREAT WITH LIMITING FLUIDS. PATIENT TALKED WITH BACK ROLL LATHE OPERATOR TODAY TO GET A PRIMARY CARE PROVIDER. PATIENT WAS ABLE TO GET SOME REST THROUGHOUT SHIFT. HAS CALL LIGHT WITHIN REACH, BED IN LOWEST POSITION AND STATING NOTHING IS NEEDED AT THIS TIME.
[2024-09-19 18:27] LABS: Calcium, Blood 7.7 mg/dL (8.5-10.1); Creatinine, Blood 0.86 mg/dL (0.60-1.20)
[2024-09-19] MEDS ORDERED: Potassium Chloride 10 Meq Tablet SA PO ONE (18:50)
[2024-09-20] VITALS (7 sets, daily range): BP systolic 142–171; BP diastolic 79–100
[2024-09-20 04:17] LABS: Hematocrit 39.8 % (37.0-53.0); Hemoglobin 13.8 g/dL (13.5-17.5); Mean Corpuscular HGB 31.2 pg (26.0-34.0); Mean Corpuscular HGB Conc 34.7 g/dL (31.5-36.5); Mean Corpuscular Volume 90 fL (80-100); Mean Platelet Volume 8.9 fL (9.1-12.4); Platelet Count 154 K/mm3 (150-400); RDW Coefficient Variation 14.1 % (11.7-14.2); RDW Standard Deviation 46.5 fL (35.1-46.3); Red Blood Cell Count 4.42 M/mm3 (4.30-5.90); White Blood Cell Count 11.61 K/mm3 (4.00-11.30)
[2024-09-20 04:33] LABS: Bun/Creatinine Ratio 49.1 (12.0-20.0); Calcium, Blood 7.8 mg/dL (8.5-10.1); Creatinine, Blood 0.86 mg/dL (0.60-1.20); Magnesium, Blood 2.6 mg/dL (1.6-2.4); Phosphorus, Blood 2.6 mg/dL (2.5-4.9); Potassium, Blood 3.2 mmol/L (3.5-5.5)
[2024-09-20] MEDS ORDERED: METOPROLOL SUCC25 MG PO (04:34)
--- NOTE | 2024-09-20 06:47 | NUR ---
SHIFT SUMMARY: PT IS A&OX4, ANXIOUS AND IRRITABLE. BP ELEVATED, SYS >170, HR IN THE 70'S AT REST, O2 SATS >93 ON RA, AFEBRILE. SR 70'S-80'S. DENIES ANY CP OR PRESSURE CURRENTLY. DENIES PAIN. TOLERATING A 2 GM Na RESTRICTED, HEART HEALTHY DIET, WITH A 1.5L FLUID RESTRICTION. WATER ONLY AFTER MN FOR THE SECOND PART OF HIS STRESS TEST TODAY. VOIDING IN THE TOILET, REMINDED PT WHY WE NEED TO BE MEASURING OUTPUT. NO BM THIS SHIFT. BED IN LOWEST POSITION, CALL LIGHT WITHIN REACH. CALLS APPROPRIATELY AND IS ABLE TO ADVOCATE NEEDS EFFECTIVELY.
[2024-09-20] MEDS ORDERED: Potassium Chloride 20 MEQ TabCR PO ONE (09:00)
[2024-09-20] MEDS ORDERED: AmLODIPine Besylate 5 MG Tab PO SCH ×2 (09:00→09:10)
[2024-09-20] MEDS ORDERED: Furosemide 10 MG/ML 4ML Vial IV SCH (09:00)
[2024-09-20 09:27] LABS: Source, Urine Clean Catch
[2024-09-20 09:45] LABS: Appearance, Urine Clear (Clear); Bilirubin, Urine Neg (Neg); Blood, Urine Neg (Neg); Glucose Qualitative, Urine Neg (Neg); Ketones, Urine Neg (Neg); Leukocyte Esterase, Urine Neg (Neg); Nitrite, Urine Neg (Neg); Protein, Urine Neg (Neg); Urobilinogen, Urine NORM (Normal)
[2024-09-20 09:50] LABS: Color, Urine Pale Yellow (P-Yellow)
[2024-09-20] MEDS ORDERED: NITR.4SL SL (17:50)
--- NOTE | 2024-09-20 18:27 | NUR ---
Discharge Summary Pt alert, oriented x4; anxious and cooperative with care. Pt resting in bed, up ind in room. Pt denies pain, chest pain/pressure, sob, nausea, dizziness and numb/tingling. Tele sinus, bp elevated at time but stable. Spo2 >90% on ra, breathing even and unlabored. Abd soft, nontender, +bt. Completed second portion of stres test- results called into Dr. Pope, plans for discharge. Updated patinet on plan, educated pt on discharge instructions, medications and follow up appointments. Pt had concersn with medications, called Dr for clarification, ok to continue taking nitro. Update medication list sent with patient. Pt left on foot at 1810.
== END 2024-09-20 18:10 | disposition home or self-care (01) | DRG 313 ==
LOC: ER 19:06 → ERHOLD 19:07 → PCU 19:07
PROVIDERS: Hospitalist; Student in an Organized Health Care Education/Training Program; ADMIT Internal Medicine
DX: R07.89 Other chest pain (principal); I50.9 Heart failure, unspecified; R79.89 Other specified abnormal findings of blood chemistry; J44.9 Chronic obstructive pulmonary disease, unspecified; I25.10 Atherosclerotic heart disease of native coronary artery without angina pectoris; R03.0 Elevated blood-pressure reading, without diagnosis of hypertension; F41.9 Anxiety disorder, unspecified; F43.10 Post-traumatic stress disorder, unspecified; I51.7 Cardiomegaly; D72.829 Elevated white blood cell count, unspecified; K21.9 Gastro-esophageal reflux disease without esophagitis; G43.909 Migraine, unspecified, not intractable, without status migrainosus; F17.200 Nicotine dependence, unspecified, uncomplicated; I25.2 Old myocardial infarction; Z88.8 Allergy status to other drugs, medicaments and biological substances; Z88.1 Allergy status to other antibiotic agents; Z91.041 Radiographic dye allergy status
CPT/HCPCS: 36415; 71045; 78452; 80048; 80053; 81003; 82947; 83735; 83880; 84100; 84145; 84484; 85025; 85027; 86140; 87428-QW; 93005; 93010; 93017; 93306; 94640; 94664; 94762; 96365; 99285-25; A9270; A9500; G0378; J0280; J1650; J1940; J2785; J3480; J7050

== ENCOUNTER 2024-09-25 06:55 | Emergency (ER) | payer OTHER ==
[~2024-09-25] VITALS: Ht 188 cm; Wt 81.7 kg
[~2024-09-25 06:55] MED LIST changes: +METOPROLOL SUCC25 MG PO; -Metoprolol Succinate 25 MG TABCR PO SCH
[2024-09-25 08:21] LABS: Albumin, Blood 2.9 g/dL (3.4-5.0); Bilirubin, Total 1.1 mg/dL (0.1-1.0); Bun/Creatinine Ratio 33.9 (12.0-20.0); Calcium, Blood 7.8 mg/dL (8.5-10.1); Creatinine, Blood 0.86 mg/dL (0.60-1.20); Globulin, Blood 2.8 g/dL (2.2-4.0); Potassium, Blood 2.5 mmol/L (3.5-5.5); Total Protein, Blood 5.7 g/dL (6.4-8.2)
[2024-09-25 08:22] LABS: BASOPHILS PERCENT AUTO 0 % (0-2); EOSINOPHILS PERCENT AUTO 0 % (0-6); Hematocrit 42.2 % (37.0-53.0); IMMATURE GRAN ABSOLUTE AUTO 0.05 K/mm3 (0.00-0.10); IMMATURE GRAN PERCENT AUTO 1 % (0-1); LYMPHOCYTES ABSOLUTE AUTO 0.33 K/mm3 (0.84-5.20); LYMPHOCYTES PERCENT AUTO 3 % (21-46); MONOCYTES ABSOLUTE AUTO 0.26 K/mm3 (0.16-1.47); MONOCYTES PERCENT AUTO 3 % (4-13); Mean Corpuscular HGB 31.3 pg (26.0-34.0); Mean Corpuscular HGB Conc 35.5 g/dL (31.5-36.5); Mean Corpuscular Volume 88 fL (80-100); Mean Platelet Volume 9.2 fL (9.1-12.4); NEUTROPHILS ABSOLUTE AUTO 9.35 K/mm3 (1.96-9.15); NEUTROPHILS PERCENT AUTO 94 % (41-73); Platelet Count 154 K/mm3 (150-400); RDW Coefficient Variation 13.2 % (11.7-14.2); RDW Standard Deviation 43.2 fL (35.1-46.3); White Blood Cell Count 9.99 K/mm3 (4.00-11.30)
[2024-09-25] MEDS ORDERED: Potassium Chl 20MEQ/Water100ML 100 ML IV ONE ×2 (08:55→09:25)
[2024-09-25 09:14] LABS: Magnesium, Blood 2.4 mg/dL (1.6-2.4)
[2024-09-25] MEDS ORDERED: Potassium Chloride 20 MEQ TabCR PO ONE (09:25)
[2024-09-25] MEDS ORDERED: NS 1,000 ML IV SCH (09:25)
[2024-09-25] MEDS ORDERED: Sodium Phosphate 30 MM in Dextrose 5% 500 ML IV ONE (09:30)
[2024-09-25 10:00] VITALS: BP 159/89
== END 2024-09-25 15:54 | disposition home or self-care (01) ==
LOC: ER 06:55
PROVIDERS: Physician Assistant; Student in an Organized Health Care Education/Training Program
DX: E87.5 Hyperkalemia (principal); E83.39 Other disorders of phosphorus metabolism; I25.10 Atherosclerotic heart disease of native coronary artery without angina pectoris; J44.9 Chronic obstructive pulmonary disease, unspecified; F17.210 Nicotine dependence, cigarettes, uncomplicated; Z88.8 Allergy status to other drugs, medicaments and biological substances; Z88.1 Allergy status to other antibiotic agents; Z91.041 Radiographic dye allergy status
CPT/HCPCS: 80053; 82010; 83735; 83880; 84100; 84484; 85025; 93005; 93010; 96365; 96366; 96367; 96368; 99283-25; A9270; J3480; J7030; J7060

== ENCOUNTER 2024-09-29 08:06 | Inpatient (IN) | payer OTHER ==
[~2024-09-29] VITALS: Ht 188 cm; Wt 75.4 kg
[2024-09-29 09:21] LABS: Magnesium, Blood 2.3 mg/dL (1.6-2.4)
[2024-09-29 09:25] LABS: Bun/Creatinine Ratio 30.2 (12.0-20.0); Calcium, Blood 7.6 mg/dL (8.5-10.1); Creatinine, Blood 0.89 mg/dL (0.60-1.20); Phosphorus, Blood 2.7 mg/dL (2.5-4.9); Potassium, Blood 2.3 mmol/L (3.5-5.5)
[2024-09-29] MEDS ORDERED: Potassium Chloride 60 MEQ IV ONE (09:30)
[2024-09-29] MEDS ORDERED: Potassium Chloride 20 MEQ/15 ML UDC PO ONE (09:30)
[2024-09-29] MEDS ORDERED: Potassium Chl 20MEQ/Water100ML 100 ML IV SCH (09:40)
[2024-09-29] MEDS ORDERED: NS 1,000 ML IV ONE (10:13)
[2024-09-29] MEDS ORDERED: Potassium Chloride 10 Meq Tablet SA PO STA (11:19)
[2024-09-29] MEDS ORDERED: SUMAtriptan Succinate 25 MG Tab PO PRN (11:25)
[2024-09-29] MEDS ORDERED: FLU VACC TS2024-25(6MOS UP)/PF 45 MCG/0.5 ML SYRINGE IM SCH (11:25)
[2024-09-29] MEDS ORDERED: Nitroglycerin 0.4 MG SUBL SL PRN (11:25)
[2024-09-29] MEDS ORDERED: NS 250 ML IV PRN (12:15)
[2024-09-29 12:38] VITALS: BP 189/110
[2024-09-29] MEDS ORDERED: SPIRIVA RESPIMAT4 G3 INH (13:41)
[2024-09-29] MEDS ORDERED: DOCU100 PO (13:42)
[2024-09-29] MEDS ORDERED: FISH OIL 1,0001 EA10 PO (13:42)
[2024-09-29] MEDS ORDERED: Vitamin D1000 UNI1 PO (13:42)
[2024-09-29] MEDS ORDERED: Albuterol HFA200 ACT/6.7 GM INH INH PRN (14:55)
[2024-09-29 15:47] VITALS: BP 170/86
[2024-09-29 16:18] LABS: Albumin, Blood 2.5 g/dL (3.4-5.0); Anion Gap 8 mmol/L (3-11); Blood Urea Nitrogen 21 mg/dL (8-24); Bun/Creatinine Ratio 26.7 (12.0-20.0); CO2, Blood 30 mmol/L (21-32); Calcium, Blood 7.1 mg/dL (8.5-10.1); Chloride, Blood 104 mmol/L (98-108); Creatinine, Blood 0.79 mg/dL (0.60-1.20); Glomerular Filtration Rate 96 (60-); Glucose, Blood 199 mg/dL (70-99); Potassium, Blood 3.3 mmol/L (3.5-5.5); Sodium, Blood 139 mmol/L (136-145)
--- NOTE | 2024-09-29 16:49 | NUR ---
pt was a admit from ed. pt has been on tele monitoring, has had no c/o pain, chest pain, sob. pt has had po and iv potassium, see emar for details. pt has no questions or concerns at this time.
[2024-09-29] MEDS ORDERED: Potassium Phosphate Dibasic 30 MM in Dextrose 5% 500 ML IV STA (17:24)
[2024-09-29] MEDS ORDERED: Potassium Chloride 10 Meq Tablet SA PO ONE (17:25)
[2024-09-29 19:14] VITALS: BP 169/94
[2024-09-29] MEDS ORDERED: Simethicone 80 MG Chew PO PRN (21:25)
[2024-09-29] MEDS ORDERED: Nystatin 100,000 Unit/ML Susp 5 ML UDC PO SCH (21:55)
[2024-09-29 23:47] VITALS: BP 156/82
[2024-09-30] VITALS (7 sets, daily range): BP systolic 162–181; BP diastolic 83–104
[2024-09-30 05:30] LABS: Hematocrit 38.3 % (37.0-53.0); Hemoglobin 13.7 g/dL (13.5-17.5); Mean Corpuscular HGB 31.4 pg (26.0-34.0); Mean Corpuscular HGB Conc 35.8 g/dL (31.5-36.5); Mean Corpuscular Volume 88 fL (80-100); Mean Platelet Volume 9.2 fL (9.1-12.4); Platelet Count 148 K/mm3 (150-400); RDW Coefficient Variation 13.4 % (11.7-14.2); RDW Standard Deviation 43.8 fL (35.1-46.3); Red Blood Cell Count 4.36 M/mm3 (4.30-5.90); White Blood Cell Count 8.81 K/mm3 (4.00-11.30)
[2024-09-30 05:54] LABS: Bun/Creatinine Ratio 27.8 (12.0-20.0); Calcium, Blood 7.4 mg/dL (8.5-10.1); Creatinine, Blood 0.79 mg/dL (0.60-1.20); Phosphorus, Blood 2.5 mg/dL (2.5-4.9); Potassium, Blood 2.9 mmol/L (3.5-5.5)
[2024-09-30] MEDS ORDERED: Pantoprazole Sodium 40 MG Tab PO SCH (06:00)
[2024-09-30] MEDS ORDERED: Potassium Chl 20MEQ/Water100ML 100 ML IV SCH (06:59)
[2024-09-30] MEDS ORDERED: Enoxaparin 40 MG/0.4 ML SYR SC SCH (09:00)
[2024-09-30] MEDS ORDERED: Metoprolol Succinate 25 MG TABCR PO SCH (09:00)
[2024-09-30] MEDS ORDERED: Tiotropium Bromide 2.5 MCG/ACT MIST INHAL (10 ACT/4 GM) INH SCH (15:40)
--- NOTE | 2024-09-30 16:24 | NUR ---
SHIFT SUMMARY PT CONT LEVEL OF CARE. PT NOTED TO BE A&OX 4 AND IND IN ROOM. PT CALLS APPROPRIATE. PT STARTED A 24HR URINE COLLECT THIS SHIFT AT 0945. PT HAS RECIEVED POTASSIUM REPLACEMENT THIS SHIFT D/T POTASSIUM NOTED TO BE 2.9 DURNING MORNING LAB DRAW. PT ALSO HAS A CONSULT PUT IN WITH DR LO RE HIS HYPOKALEMIA. PT CHANGED TO [facility]S ACCU CHECKS PT STATED HE IS A DIABETIC. PT CONT WITH TELEMENTRY NOTED TO BE SR WITH A HR OF 71.
[2024-09-30] MEDS ORDERED: Insulin Human Lispro 100 Units/ML 3ML Syringe SC SCH (16:30)
[2024-09-30] MEDS ORDERED: Potassium Chloride 20 MEQ TabCR PO SCH (17:00)
[2024-09-30 18:16] LABS: Albumin, Blood 2.6 g/dL (3.4-5.0); Anion Gap 8 mmol/L (3-11); Blood Urea Nitrogen 20 mg/dL (8-24); Bun/Creatinine Ratio 24.7 (12.0-20.0); CO2, Blood 30 mmol/L (21-32); Calcium, Blood 7.2 mg/dL (8.5-10.1); Chloride, Blood 103 mmol/L (98-108); Creatinine, Blood 0.81 mg/dL (0.60-1.20); Glomerular Filtration Rate 95 (60-); Glucose, Blood 139 mg/dL (70-99); Phosphorus, Blood 2.4 mg/dL (2.5-4.9); Potassium, Blood 3.2 mmol/L (3.5-5.5); Sodium, Blood 138 mmol/L (136-145)
[2024-10-01] VITALS (7 sets, daily range): BP systolic 145–184; BP diastolic 90–98
--- NOTE | 2024-10-01 05:47 | NUR ---
SHIFT SUMMARY PT A&Ox4 AND PLEASANT. PT HAS CRONIC PAIN BUT DECLINED PAIN MEDICATION. HEAT PACK IN ROOM. PT DID C/O OF EPIGASTIC DISCOMFORT AND REQUESTED GAS MEDICATION. SIMETHICONE GIVEN PER EMAR. CONTINUING TO COLLECT 24HR URINE SAMPLE T/O NIGHT. VSS BUT BP REMAINS ELEVATED. BED IN LOWEST POSITION AND CALL LIGHT IN REACH.
[2024-10-01] MEDS ORDERED: Potassium Phosphate Dibasic 30 MM in Dextrose 5% 500 ML IV STA (08:32)
[2024-10-01] MEDS ORDERED: Docosahexanoic Acid/EPA 1,000 MG CAP PO SCH (09:00)
[2024-10-01] MEDS ORDERED: Spironolactone 25 MG Tab PO SCH (09:00)
[2024-10-01] MEDS ORDERED: Cholecalciferol 1000 Unit Tablet (=25MCG) PO SCH (09:00)
[2024-10-01] MEDS ORDERED: Docusate Sodium 100 MG Cap PO SCH (09:00)
[2024-10-01 16:43] LABS: Albumin, Blood 2.6 g/dL (3.4-5.0); Anion Gap 8 mmol/L (3-11); Blood Urea Nitrogen 18 mg/dL (8-24); Bun/Creatinine Ratio 18.2 (12.0-20.0); CO2, Blood 31 mmol/L (21-32); Calcium, Blood 7.4 mg/dL (8.5-10.1); Chloride, Blood 103 mmol/L (98-108); Creatinine, Blood 0.99 mg/dL (0.60-1.20); Glomerular Filtration Rate 82 (60-); Glucose, Blood 91 mg/dL (70-99); Phosphorus, Blood 3.5 mg/dL (2.5-4.9); Potassium, Blood 3.2 mmol/L (3.5-5.5); Sodium, Blood 139 mmol/L (136-145)
--- NOTE | 2024-10-01 17:41 | NUR ---
SHIFT SUMMARY PT CONT LEVEL OF CARE. PT CONT TO RECEIVE POTASSIUM REPLACEMENT AND LAB CONT TO REMAIN AT 3.2. ORTHO CONSULT ALSO CALLED THIS SHIFT FOR RUPTURED RIGHT BICEP. PT CONT TO AWAIT TO BE SEEN BY ORTHO. PT NOTED TO BE RED AND YEASTY TO GROIN PHYSICIAN NOTIFED AND ORDER RECEIVED SEE SEP.
[2024-10-01] MEDS ORDERED: Potassium Chloride 20 MEQ/15 ML UDC PO SCH (19:00)
[2024-10-01] MEDS ORDERED: Miconazole Nitrate 2% 85 GM PWD TOP SCH (21:00)
[2024-10-02 03:41] VITALS: BP 148/98
--- NOTE | 2024-10-02 04:08 | NUR ---
COUNTY SHERIFF SUMMARY BP ELEVATED, OTHERWISE VSS. ALERT AND ORINETED. UP AD DEISY, ON TELE SINUS IN THE 70'S. LATEST K+ LEVEL 3.2, URINE SENT DOWN FOR TESTING, AWAITING RESULTS. HAS BEEN RESTING QUIETLY WITH FEW INTERRUPTIONS, UP AD DEISY TO BATHROOM NEEDED. ABLE TO REPOSITOIN SELF IN BED FOR COMFORT. CALL LIGHT IN REACH, RAILS UP X 2 AND BED IN LOW POSITION FOR SAFETY. VOICED CURIOSITY RE K+ LEVELS AND POSSIBLE MEDS TO TAKE AT HOME. AGREED TO DISCUSS IT WITH MD IN THE AM. NO C/O VOICED AT THIS TIME. WILL CONTINUE TO MONITOR
[2024-10-02 06:21] LABS: Albumin, Blood 2.8 g/dL (3.4-5.0); Anion Gap 9 mmol/L (3-11); Blood Urea Nitrogen 19 mg/dL (8-24); Bun/Creatinine Ratio 25.4 (12.0-20.0); CO2, Blood 30 mmol/L (21-32); Calcium, Blood 7.5 mg/dL (8.5-10.1); Chloride, Blood 101 mmol/L (98-108); Creatinine, Blood 0.75 mg/dL (0.60-1.20); Glomerular Filtration Rate 98 (60-); Glucose, Blood 139 mg/dL (70-99); Phosphorus, Blood 3.2 mg/dL (2.5-4.9); Potassium, Blood 3.5 mmol/L (3.5-5.5); Sodium, Blood 136 mmol/L (136-145)
[2024-10-02 07:05] VITALS: BP 153/90
[2024-10-02] MEDS ORDERED: Spironolactone 25 MG Tab PO SCH (09:00)
[2024-10-02 11:21] VITALS: BP 157/87
[2024-10-02] MEDS ORDERED: MICONAZOLE NITR85 GM TOP (12:43)
[2024-10-02] MEDS ORDERED: POTA20LUD PO (12:44)
[2024-10-02] MEDS ORDERED: NYSTATIN100000 U10 PO (12:44)
[2024-10-02] MEDS ORDERED: METF500 PO (12:45)
[2024-10-02] MEDS ORDERED: SPIR25 PO (12:45)
--- NOTE | 2024-10-02 15:37 | NUR ---
DISCHARGE NOTE PATIENT EDUCATED ON PATIENT DISCHARGE INSTRUCTIONS AND NEW PRESCRITPIONS. [employer] SALES REPRESENTATIVE/PHARMACIST CAME BY FOR DIABETIC EDUCATION AND PRINT OUTS. FAXED PRESCRIPTIONS TO [facility] AND [facility] PER PATIENT REQUEST. IV REMOVED AND PATIENT ESCORTED DOWN WITH IC ENGINEER. PATIENT DROVE HIMSELF HOME.
[2024-10-05 05:48] LABS: ALDOSTERONE/RENINACTIVITY CALC 15.1 ratio (<=25.0); RENIN ACTIVITY 0.2 ng/mL/hr
== END 2024-10-02 14:38 | disposition home health service (06) | DRG 641 ==
LOC: ER 08:06 → MEDS 08:07 → ER 08:07 → MEDS 12:30 → ER 14:56 → MEDS 14:56
PROVIDERS: Hospitalist; Student in an Organized Health Care Education/Training Program; ADMIT Internal Medicine
DX: E87.6 Hypokalemia (principal); I50.32 Chronic diastolic (congestive) heart failure; G43.909 Migraine, unspecified, not intractable, without status migrainosus; J44.9 Chronic obstructive pulmonary disease, unspecified; E55.9 Vitamin D deficiency, unspecified; I25.10 Atherosclerotic heart disease of native coronary artery without angina pectoris; E11.9 Type 2 diabetes mellitus without complications; K21.9 Gastro-esophageal reflux disease without esophagitis; I11.0 Hypertensive heart disease with heart failure; F17.210 Nicotine dependence, cigarettes, uncomplicated; S46.211A Strain of muscle, fascia and tendon of other parts of biceps, right arm, initial encounter; X58.XXXA Exposure to other specified factors, initial encounter; Z91.041 Radiographic dye allergy status; Z88.8 Allergy status to other drugs, medicaments and biological substances; Z88.1 Allergy status to other antibiotic agents; I25.2 Old myocardial infarction; Z90.49 Acquired absence of other specified parts of digestive tract; Z60.2 Problems related to living alone
CPT/HCPCS: 36415; 76882; 80048; 80069; 82088; 82436; 82570; 82947; 83036; 83735; 83930; 83935; 84100; 84133; 84244; 85027; 93005; 93010; 94640; 94760; 96365; 96366; 96372; 96376; 99285-25; A9270; G0378; J1650; J3480; J7030; J7050; J7060

== ENCOUNTER 2024-10-22 09:37 | Emergency (ER) | payer OTHER ==
[~2024-10-22] VITALS: Ht 188 cm; Wt 74.8 kg
[~2024-10-22 09:37] MED LIST changes: +DOCU100 PO; +FISH OIL 1,0001 EA10 PO; +METF500 PO; +MICONAZOLE NITR85 GM TOP; +NYSTATIN100000 U10 PO; +POTA20LUD PO; +SPIR25 PO; +SPIRIVA RESPIMAT4 G3 INH; +Vitamin D1000 UNI1 PO
[2024-10-22] MEDS ORDERED: NS 1,000 ML IV SCH (09:50)
[2024-10-22 10:18] LABS: Source, Urine Clean Catch
[2024-10-22 10:24] LABS: Appearance, Urine Clear (Clear); Bilirubin, Urine Neg (Neg); Blood, Urine Neg (Neg); Color, Urine Yellow (P-Yellow); Glucose Qualitative, Urine 4+ (Neg); Ketones, Urine Neg (Neg); Leukocyte Esterase, Urine Neg (Neg); Nitrite, Urine Neg (Neg); Protein, Urine 1+ (Neg); Urobilinogen, Urine NORM (Normal)
[2024-10-22 10:26] LABS: BASOPHILS ABSOLUTE AUTO 0.01 K/mm3 (0.00-0.23); BASOPHILS PERCENT AUTO 0 % (0-2); EOSINOPHILS PERCENT AUTO 0 % (0-6); Hematocrit 41.6 % (37.0-53.0); Hemoglobin 14.7 g/dL (13.5-17.5); IMMATURE GRAN ABSOLUTE AUTO 0.25 K/mm3 (0.00-0.10); IMMATURE GRAN PERCENT AUTO 2 % (0-1); LYMPHOCYTES ABSOLUTE AUTO 0.71 K/mm3 (0.84-5.20); LYMPHOCYTES PERCENT AUTO 6 % (21-46); MONOCYTES ABSOLUTE AUTO 0.43 K/mm3 (0.16-1.47); MONOCYTES PERCENT AUTO 3 % (4-13); Mean Corpuscular HGB 31.9 pg (26.0-34.0); Mean Corpuscular HGB Conc 35.3 g/dL (31.5-36.5); Mean Corpuscular Volume 90 fL (80-100); Mean Platelet Volume 9.2 fL (9.1-12.4); NEUTROPHILS ABSOLUTE AUTO 11.26 K/mm3 (1.96-9.15); NEUTROPHILS PERCENT AUTO 89 % (41-73); Platelet Count 256 K/mm3 (150-400); RDW Coefficient Variation 13.8 % (11.7-14.2); RDW Standard Deviation 45.3 fL (35.1-46.3); Red Blood Cell Count 4.61 M/mm3 (4.30-5.90); White Blood Cell Count 12.66 K/mm3 (4.00-11.30)
[2024-10-22 10:29] LABS: Base Excess Venous 11.1 mmol/L; Bicarbonate Venous 31.9 mmol/L (24.0-30.0); PCO2 Venous 52.7 mmHg (38-42); pH Blood Venous 7.44 (7.34-7.37)
[2024-10-22 10:55] LABS: Magnesium, Blood 2.3 mg/dL (1.6-2.4)
[2024-10-22 11:01] LABS: Albumin, Blood 2.8 g/dL (3.4-5.0); Albumin/Globulin Ratio 0.9 (0.8-1.8); Beta-hydroxybutyrate 1.1 mg/dL (0.2-2.8); Bilirubin, Total 0.5 mg/dL (0.1-1.0); Bun/Creatinine Ratio 29.6 (12.0-20.0); Calcium, Blood 8.3 mg/dL (8.5-10.1); Creatinine, Blood 0.84 mg/dL (0.60-1.20); Globulin, Blood 3.1 g/dL (2.2-4.0); Phosphorus, Blood 2.2 mg/dL (2.5-4.9); Potassium, Blood 3.1 mmol/L (3.5-5.5); Total Protein, Blood 5.9 g/dL (6.4-8.2)
[2024-10-22] MEDS ORDERED: Magnesium Oxide 400 MG Tab PO ONE (11:05)
[2024-10-22] MEDS ORDERED: Potassium Chloride 20 MEQ TabCR PO ONE (11:05)
[2024-10-22] MEDS ORDERED: MAG-OXIDE MAGN200 MG PO (11:14)
[2024-10-22 11:17] VITALS: BP 171/106
== END 2024-10-22 11:23 | disposition home or self-care (01) ==
LOC: ER 09:37
PROVIDERS: Emergency Medicine
DX: E11.65 Type 2 diabetes mellitus with hyperglycemia (principal); E87.6 Hypokalemia; J44.9 Chronic obstructive pulmonary disease, unspecified; I25.10 Atherosclerotic heart disease of native coronary artery without angina pectoris; I25.2 Old myocardial infarction; I10 Essential (primary) hypertension; K21.9 Gastro-esophageal reflux disease without esophagitis; G43.909 Migraine, unspecified, not intractable, without status migrainosus; F17.210 Nicotine dependence, cigarettes, uncomplicated; Z91.041 Radiographic dye allergy status; Z91.011 Allergy to milk products; Z88.6 Allergy status to analgesic agent; Z88.1 Allergy status to other antibiotic agents; Z88.8 Allergy status to other drugs, medicaments and biological substances; Z91.018 Allergy to other foods; Z79.899 Other long term (current) drug therapy
CPT/HCPCS: 80053; 82010; 82803; 82947; 83735; 84100; 85025; 93005; 93010; 99285-25; A9270

== ENCOUNTER 2024-11-15 02:37 | Emergency (ER) | payer OTHER ==
[~2024-11-15] VITALS: Ht 188 cm; Wt 75.8 kg
[~2024-11-15 02:37] MED LIST changes: +MAG-OXIDE MAGN200 MG PO
[2024-11-15 02:56] LABS: Hemoglobin 13.5 g/dL (13.5-17.5); Mean Corpuscular HGB 32.2 pg (26.0-34.0); Mean Corpuscular HGB Conc 33.8 g/dL (31.5-36.5); Mean Corpuscular Volume 96 fL (80-100); Mean Platelet Volume 10.2 fL (9.1-12.4); NRBC ABSOLUTE 0.17 K/mm3 (0.00-0.02); NRBC Auto 1.5 /100 WBC (0.0-0.2); Platelet Count 207 K/mm3 (150-400); RDW Coefficient Variation 16.7 % (11.7-14.2); RDW Standard Deviation 58.1 fL (35.1-46.3); Red Blood Cell Count 4.19 M/mm3 (4.30-5.90); White Blood Cell Count 11.14 K/mm3 (4.00-11.30)
[2024-11-15 03:10] LABS: Albumin/Globulin Ratio 1.1 (0.8-1.8); Bilirubin, Total 0.6 mg/dL (0.1-1.0); Calcium, Blood 8.3 mg/dL (8.5-10.1); Creatinine, Blood 1.07 mg/dL (0.60-1.20); Globulin, Blood 2.7 g/dL (2.2-4.0); Total Protein, Blood 5.7 g/dL (6.4-8.2)
[2024-11-15 03:19] LABS: BAND PERCENT MAN 3 % (0-8); BASOPHILS PERCENT MAN 0 % (0-2); EOSINOPHILS PERCENT MAN 0 % (0-6); LYMPHOCYTES PERCENT MAN 18 % (21-46); METAMYELOCYTE ABSOLUTE MAN 0.11 K/mm3 (0.00-0.00); METAMYELOCYTE PERCENT MAN 1 % (0-0); MONOCYTES ABSOLUTE MAN 0.55 K/mm3 (0.16-1.47); MONOCYTES PERCENT MAN 5 % (4-13); MYELOCYTE ABSOLUTE MAN 0.44 K/mm3 (0.00-0.00); MYELOCYTE PERCENT MAN 4 % (0-0); NEUTROPHILS ABSOLUTE MAN 8.02 K/mm3 (1.96-9.15); SEG NEUTROPHILS PERCENT MAN 69 % (41-73); TOTAL CELLS COUNTED 100
[2024-11-15 04:04] LABS: CORONAVIRUS COVID-19 AG Negative (NEGATIVE); INFLUENZA A AG Negative (NEGATIVE); INFLUENZA B AG Negative (NEGATIVE)
[2024-11-15 04:15] LABS: Magnesium, Blood 2.4 mg/dL (1.6-2.4); Phosphorus, Blood 3.2 mg/dL (2.5-4.9)
[2024-11-15 05:29] LABS: Percent Saturation 37.8 % (20.0-50.0)
[2024-11-15] MEDS ORDERED: Gabapentin 100 MG Cap PO ONE (05:45)
[2024-11-15] MEDS ORDERED: GABA100 PO (05:46)
[2024-11-15 06:00] VITALS: BP 126/85
== END 2024-11-15 06:26 | disposition home or self-care (01) ==
LOC: ER 02:37
PROVIDERS: Emergency Medicine
DX: E83.119 Hemochromatosis, unspecified (principal); E11.42 Type 2 diabetes mellitus with diabetic polyneuropathy; E11.65 Type 2 diabetes mellitus with hyperglycemia; J44.9 Chronic obstructive pulmonary disease, unspecified; I10 Essential (primary) hypertension; K21.9 Gastro-esophageal reflux disease without esophagitis; F43.10 Post-traumatic stress disorder, unspecified; I25.2 Old myocardial infarction; Z91.041 Radiographic dye allergy status; Z79.899 Other long term (current) drug therapy; Z88.8 Allergy status to other drugs, medicaments and biological substances; Z88.1 Allergy status to other antibiotic agents; Z91.011 Allergy to milk products
CPT/HCPCS: 80053; 82728; 83540; 83550; 83735; 84100; 85025; 87081; 87428-QW; 87430; 93005; 93010; 99284-25; A9270

== ENCOUNTER 2025-04-17 11:09 | Emergency (ER) | payer OTHER ==
[~2025-04-17] VITALS: Ht 188 cm; Wt 76.7 kg
[~2025-04-17 11:09] MED LIST changes: +GABA100 PO
[2025-04-17] MEDS ORDERED: Potassium Chl 10MEQ/Water100ML 100 ML IV ONE (11:35)
[2025-04-17 11:38] LABS: BASOPHILS ABSOLUTE AUTO 0.02 K/mm3 (0.00-0.23); BASOPHILS PERCENT AUTO 0 % (0-2); EOSINOPHILS ABSOLUTE AUTO 0.01 K/mm3 (0.00-0.68); EOSINOPHILS PERCENT AUTO 0 % (0-6); Hematocrit 44.3 % (37.0-53.0); Hemoglobin 15.7 g/dL (13.5-17.5); IMMATURE GRAN ABSOLUTE AUTO 0.11 K/mm3 (0.00-0.10); IMMATURE GRAN PERCENT AUTO 1 % (0-1); LYMPHOCYTES ABSOLUTE AUTO 0.66 K/mm3 (0.84-5.20); LYMPHOCYTES PERCENT AUTO 5 % (21-46); MONOCYTES ABSOLUTE AUTO 0.46 K/mm3 (0.16-1.47); MONOCYTES PERCENT AUTO 4 % (4-13); Mean Corpuscular HGB Conc 35.4 g/dL (31.5-36.5); Mean Corpuscular Volume 85 fL (80-100); NEUTROPHILS ABSOLUTE AUTO 11.69 K/mm3 (1.96-9.15); NEUTROPHILS PERCENT AUTO 90 % (41-73); NRBC ABSOLUTE 0.00 K/mm3 (0.00-0.02); NRBC Auto 0.0 /100 WBC (0.0-0.2); Platelet Count 205 K/mm3 (150-400); RDW Coefficient Variation 14.5 % (11.7-14.2); RDW Standard Deviation 44.1 fL (35.1-46.3)
[2025-04-17 12:09] LABS: Alanine Aminotransfer (ALT/SGP 53.0 U/L (12-78); Albumin, Blood 3.3 g/dL (3.4-5.0); Albumin/Globulin Ratio 1.0 (0.8-1.8); Anion Gap 7.0 mmol/L (3-11); Aspartate Aminotrans (AST/SGOT 15.0 U/L (12-37); Bilirubin, Total 0.5 mg/dL (0.1-1.0); Blood Urea Nitrogen 27.0 mg/dL (8-24); CO2, Blood 32.0 mmol/L (21-32); Calcium, Blood 8.4 mg/dL (8.5-10.1); Chloride, Blood 103.0 mmol/L (98-108); Creatinine, Blood 0.77 mg/dL (0.60-1.20); Globulin, Blood 3.3 g/dL (2.2-4.0); Glucose, Blood 143.0 mg/dL (70-99); Magnesium, Blood 2.5 mg/dL (1.6-2.4); Potassium, Blood 2.6 mmol/L (3.5-5.5); Sodium, Blood 139.0 mmol/L (136-145); Total Protein, Blood 6.6 g/dL (6.4-8.2)
[2025-04-17] MEDS ORDERED: NS 1,000 ML IV SCH (12:10)
[2025-04-17 13:00] VITALS: BP 175/101
[2025-04-17 14:23] LABS: Anion Gap 6.0 mmol/L (3-11); Blood Urea Nitrogen 26.0 mg/dL (8-24); CO2, Blood 31.0 mmol/L (21-32); Calcium, Blood 8.3 mg/dL (8.5-10.1); Chloride, Blood 104.0 mmol/L (98-108); Creatinine, Blood 0.68 mg/dL (0.60-1.20); Glucose, Blood 114.0 mg/dL (70-99); Potassium, Blood 3.1 mmol/L (3.5-5.5); Sodium, Blood 138.0 mmol/L (136-145)
[2025-04-17] MEDS ORDERED: POTA20PAC PO (14:32)
== END 2025-04-17 14:39 | disposition home or self-care (01) ==
LOC: ER 11:09
PROVIDERS: Emergency Medicine
DX: E87.6 Hypokalemia (principal); R07.9 Chest pain, unspecified; R79.89 Other specified abnormal findings of blood chemistry; J44.9 Chronic obstructive pulmonary disease, unspecified; I25.10 Atherosclerotic heart disease of native coronary artery without angina pectoris; I25.2 Old myocardial infarction; I10 Essential (primary) hypertension; K21.9 Gastro-esophageal reflux disease without esophagitis; F17.210 Nicotine dependence, cigarettes, uncomplicated; Z91.041 Radiographic dye allergy status; Z91.0110 Allergy to milk products, unspecified; Z88.6 Allergy status to analgesic agent; Z88.1 Allergy status to other antibiotic agents; Z88.8 Allergy status to other drugs, medicaments and biological substances; Z88.3 Allergy status to other anti-infective agents; Z91.018 Allergy to other foods; Z79.899 Other long term (current) drug therapy
CPT/HCPCS: 71045; 80048; 80053; 83735; 84484; 85025; 93005; 93010; 96365; 99285-25; A9270; J3480; J7030

== ENCOUNTER 2025-06-06 09:30 | Emergency (ER) | payer OTHER ==
[~2025-06-06] VITALS: Ht 188 cm; Wt 72.6 kg
[~2025-06-06 09:30] MED LIST changes: +Aspir 8181 MG PO; +POTA20PAC PO; +POTCHL20ER PO
[2025-06-06 10:53] LABS: BASOPHILS ABSOLUTE AUTO 0.04 K/mm3 (0.00-0.23); BASOPHILS PERCENT AUTO 0 % (0-2); EOSINOPHILS ABSOLUTE AUTO 0.00 K/mm3 (0.00-0.68); EOSINOPHILS PERCENT AUTO 0 % (0-6); Hematocrit 40.2 % (37.0-53.0); Hemoglobin 13.7 g/dL (13.5-17.5); IMMATURE GRAN ABSOLUTE AUTO 0.52 K/mm3 (0.00-0.10); IMMATURE GRAN PERCENT AUTO 4 % (0-1); LYMPHOCYTES ABSOLUTE AUTO 0.69 K/mm3 (0.84-5.20); LYMPHOCYTES PERCENT AUTO 5 % (21-46); MONOCYTES ABSOLUTE AUTO 0.45 K/mm3 (0.16-1.47); MONOCYTES PERCENT AUTO 3 % (4-13); Mean Corpuscular HGB Conc 34.1 g/dL (31.5-36.5); Mean Corpuscular Volume 90 fL (80-100); NEUTROPHILS ABSOLUTE AUTO 11.57 K/mm3 (1.96-9.15); NEUTROPHILS PERCENT AUTO 87 % (41-73); NRBC ABSOLUTE 0.00 K/mm3 (0.00-0.02); NRBC Auto 0.0 /100 WBC (0.0-0.2); Platelet Count 195 K/mm3 (150-400); RDW Coefficient Variation 15.1 % (11.7-14.2); RDW Standard Deviation 49.2 fL (35.1-46.3)
[2025-06-06 11:05] LABS: Prothrombin Time Results 11.6 Sec (9.7-11.5)
[2025-06-06 11:18] LABS: Alanine Aminotransfer (ALT/SGP 41.0 U/L (12-78); Albumin, Blood 3.2 g/dL (3.4-5.0); Albumin/Globulin Ratio 1.1 (0.8-1.8); Anion Gap 8.0 mmol/L (3-11); Aspartate Aminotrans (AST/SGOT 19.0 U/L (12-37); Bilirubin, Total 0.5 mg/dL (0.1-1.0); Blood Urea Nitrogen 34.0 mg/dL (8-24); CO2, Blood 31.0 mmol/L (21-32); Calcium, Blood 8.4 mg/dL (8.5-10.1); Chloride, Blood 101.0 mmol/L (98-108); Creatinine, Blood 0.57 mg/dL (0.60-1.20); Globulin, Blood 2.8 g/dL (2.2-4.0); Glucose, Blood 218.0 mg/dL (70-99); Potassium, Blood 2.8 mmol/L (3.5-5.5); Sodium, Blood 137.0 mmol/L (136-145); Total Protein, Blood 6.0 g/dL (6.4-8.2)
[2025-06-06] MEDS ORDERED: NS 1,000 ML IV SCH (14:45)
[2025-06-06 17:53] LABS: Calcium, Ionized (POC) 1.05 mmol/L (1.10-1.46); Chloride (POC) 102 mmol/L (98-108); Creatinine (POC) 0.7 mg/dL (0.8-1.3); Glucose (ISTAT POC) 191 mg/dL (70-99); Hematocrit (POC) 36.0 % (41.0-53.0); Hemoglobin (POC) 12.2 g/dL (13.5-17.5); Potassium (POC) 3.3 mmol/L (3.5-5.5); Sodium (POC) 142 mmol/L (135-148); Total CO2 (POC) 25 mmol/L (21-32)
[2025-06-06] MEDS ORDERED: K-TAB ER20 ME1 PO (19:59)
[2025-06-06 20:07] VITALS: BP 158/93
== END 2025-06-06 20:10 | disposition home or self-care (01) ==
LOC: ER 09:30
PROVIDERS: Physician Assistant; Student in an Organized Health Care Education/Training Program
DX: E87.6 Hypokalemia (principal); H53.8 Other visual disturbances; R20.8 Other disturbances of skin sensation; J44.9 Chronic obstructive pulmonary disease, unspecified; K21.9 Gastro-esophageal reflux disease without esophagitis; I10 Essential (primary) hypertension; F43.10 Post-traumatic stress disorder, unspecified; F17.210 Nicotine dependence, cigarettes, uncomplicated; Z79.82 Long term (current) use of aspirin; Z79.899 Other long term (current) drug therapy; Z91.0110 Allergy to milk products, unspecified; Z88.1 Allergy status to other antibiotic agents; Z88.2 Allergy status to sulfonamides; Z91.041 Radiographic dye allergy status; Z88.8 Allergy status to other drugs, medicaments and biological substances
CPT/HCPCS: 71045; 80047; 80053; 84484; 85014; 85025; 85379; 85610; 93005; 93010; 96365; 96366; 99284-25; A9270; J3480; J7030; J7050